=== PATIENT | female | born 1985 | race Caucasian/White ===

== ENCOUNTER 2017-11-25 12:38 | Emergency (ER) | payer OTHER ==
[2017-11-25 14:00] LABS: ADD MAN DIFF? NO
[2017-11-25] MEDS: SOD CHLORIDE 0.9% 1,000 ML IV (14:00)
[2017-11-25] MEDS: DIPHENHYDRAMINE 50 MG INJ IV (14:01)
[2017-11-25] MEDS: KETOROLAC 30 MG INJ IV (14:01)
[2017-11-25] MEDS: METOCLOPRAMIDE 10 MG INJ IV (14:01)
[2017-11-25 14:02] LABS: WHITE BLOOD COUNT 6.5 10^3/ul (4.8-10.8)
[2017-11-25 14:02] LABS: BASOPHILS % 0.5 % (0.0-2.0); EOSINOPHILS # 0.1 10^3/ul (0.0-0.5); EOSINOPHILS % 1.2 % (0.0-7.0); HEMOGLOBIN 13.5 g/dl (12.0-16.0); LYMPHOCYTES # 1.8 10^3/ul (0.8-2.9); LYMPHOCYTES % 27.6 % (15.0-51.0); MEAN CORPUSCULAR HEMOGLOBIN 28.5 pg (29.0-33.0); MEAN CORPUSCULAR HGB CONC 32.9 g/dl (32.0-37.0); MEAN CORPUSCULAR VOLUME 86.7 fl (82.0-101.0); MEAN PLATELET VOLUME 8.7 fl (7.4-10.4); MONOCYTE # 0.4 10^3/ul (0.3-0.9); MONOCYTES % 5.7 % (0.0-11.0); NEUTROPHIL # 4.2 10^3/ul (1.6-7.5); NEUTROPHILS % 64.5 % (39.0-77.0); PLATELET COUNT 286 10^3/UL (140-415); RED BLOOD COUNT 4.73 10^6/ul (4.20-5.40); RED CELL DISTRIBUTION WIDTH 13.5 % (11.5-14.5)
[2017-11-25 14:09] LABS: ADD UMIC YES; UR ASCORBIC ACID NEGATIVE (NEGATIVE); UR BACTERIA FEW /HPF (NONE SEEN); UR BILIRUBIN (Dip) NEGATIVE (NEGATIVE); UR BLOOD (Dip) NEGATIVE (NEGATIVE); UR CLARITY SLIGHTLY CLOUDY (CLEAR); UR COLOR YELLOW (YELLOW); UR GLUCOSE (Dip) NEGATIVE (NEGATIVE); UR KETONES (Dip) NEGATIVE (NEGATIVE); UR LEUKOCYTE ESTERASE (Dip) 2+ Leu/ul (NEGATIVE); UR NITRITE (Dip) NEGATIVE (NEGATIVE); UR RBC 1 /HPF (0-5); UR SPECIFIC GRAVITY (Dip) 1.019 (1.003-1.030); UR SQUAMOUS EPITHELIAL CELL MODERATE /HPF (FEW); UR TOTAL PROTEIN (Dip) NEGATIVE (NEGATIVE); UR UROBILINOGEN (Dip) NEGATIVE (NEGATIVE); UR WBC 2 /HPF (0-5)
[2017-11-25 14:20] LABS: ALANINE AMINOTRANSFERASE 26 IU/L (13-69); ALBUMIN 4.1 g/dl (3.3-4.9); ALBUMIN/GLOBULIN RATIO 1.07; ALKALINE PHOSPHATASE 59 IU/L (42-121); ANION GAP 11 (8-16); ASPARTATE AMINO TRANSFERASE 26 IU/L (15-46); BILIRUBIN,INDIRECT 0.1 mg/dl (0-1.1); BILIRUBIN,TOTAL 0.1 mg/dl (0.2-1.3); BLOOD UREA NITROGEN 8 mg/dl (7-20); CALCIUM 8.2 mg/dl (8.4-10.2); CARBON DIOXIDE 24 mmol/L (21-31); CHLORIDE 109 mmol/L (97-110); CREATININE 0.54 mg/dl (0.44-1.00); GLUCOSE 92 mg/dl (70-220); POTASSIUM 4.2 mmol/L (3.5-5.1); SODIUM 140 mmol/L (135-144); TOTAL PROTEIN 7.9 g/dl (6.1-8.1)
[2017-11-25 14:38] LABS: AMPHETAMINE/METHAMPHETAMINE NEGATIVE (NEGATIVE); BARBITURATES NEGATIVE (NEGATIVE); BENZODIAZEPINES NEGATIVE (NEGATIVE); COCAINE NEGATIVE (NEGATIVE); OPIATES NEGATIVE (NEGATIVE)
[2017-11-25 14:53] LABS: CANNABINOIDS NEGATIVE (NEGATIVE)
== END 2017-11-25 15:55 | disposition home or self-care (01) ==
LOC: FTE 12:38
DX: R51 Headache (principal); R11.10 Vomiting, unspecified
CPT/HCPCS: 70450; 80053; 80307; 81001; 81025; 85025; 87086; 96374; 96375; 99285-25

== ENCOUNTER 2018-07-20 10:03 | Day surgery (SDC) | payer OTHER ==
[2018-07-20 11:11] LABS: ADD MAN DIFF? NO
[2018-07-20 11:22] LABS: WHITE BLOOD COUNT 3.6 10^3/ul (4.8-10.8)
[2018-07-20 11:22] LABS: BASOPHILS % 0.6 % (0.0-2.0); EOSINOPHILS % 1.1 % (0.0-7.0); HEMATOCRIT 38.5 % (37.0-47.0); HEMOGLOBIN 12.5 g/dl (12.0-16.0); LYMPHOCYTES # 1.7 10^3/ul (0.8-2.9); LYMPHOCYTES % 46.3 % (15.0-51.0); MEAN CORPUSCULAR HEMOGLOBIN 27.7 pg (29.0-33.0); MEAN CORPUSCULAR HGB CONC 32.5 g/dl (32.0-37.0); MEAN CORPUSCULAR VOLUME 85.4 fl (82.0-101.0); MEAN PLATELET VOLUME 9.2 fl (7.4-10.4); MONOCYTE # 0.4 10^3/ul (0.3-0.9); MONOCYTES % 10.7 % (0.0-11.0); NEUTROPHIL # 1.5 10^3/ul (1.6-7.5); PLATELET COUNT 243 10^3/UL (140-415); RED BLOOD COUNT 4.51 10^6/ul (4.20-5.40); RED CELL DISTRIBUTION WIDTH 13.7 % (11.5-14.5)
[2018-07-20 11:27] LABS: HOLD TRANSMISSIONS 1
[2018-07-20] MEDS ORDERED: ROCURONIUM 50 MG INJ (12:52)
[2018-07-20] MEDS ORDERED: CEFAZOLIN 1 GM INJ (12:52)
[2018-07-20] MEDS ORDERED: GLYCOPYRROLATE 0.4 MG INJ (12:52)
[2018-07-20] MEDS ORDERED: PROPOFOL 20 ML (12:52)
[2018-07-20] MEDS ORDERED: ONDANSETRON 4 MG INJ (12:54)
[2018-07-20] MEDS ORDERED: DEXAMETHASONE 4 MG/ML 5 ML INJ (12:54)
[2018-07-20] MEDS ORDERED: MIDAZOLAM 1 MG/ML 2 ML INJ (12:54)
[2018-07-20] MEDS ORDERED: FENTAnyl 50 MCG/ML VIAL (12:54)
[2018-07-20] MEDS ORDERED: EPHEDrine SULFATE 50 MG/5 ML SYG IV (13:00)
[2018-07-20] MEDS ORDERED: DIPHENHYDRAMINE 50 MG INJ IV (13:00)
[2018-07-20] MEDS ORDERED: TRIMETHOBENZAMIDE 100 MG/ML VIAL IM (13:00)
[2018-07-20] MEDS ORDERED: MIDAZOLAM 1 MG/ML 2 ML INJ IV (13:00)
[2018-07-20] MEDS ORDERED: hydrALAzine 20 MG INJ IV (13:00)
[2018-07-20] MEDS ORDERED: MEPERIDINE 25 MG INJ IV (13:00)
[2018-07-20] MEDS ORDERED: LABETALOL HCL 20MG INJ IV (13:00)
[2018-07-20] MEDS ORDERED: HYDROmorphONE 1 MG/5 ML IV SYRINGE IV ×2 (13:00)
[2018-07-20] MEDS ORDERED: IPRATROPIUM (NEB) 0.5 MG/2.5 ML AMP HHN (13:00)
[2018-07-20] MEDS ORDERED: FENTAnyl 50 MCG/ML VIAL IV ×3 (13:00)
[2018-07-20] MEDS ORDERED: ALBUTEROL 0.083% (NEB) 2.5 MG/3 ML AMP HHN (13:00)
[2018-07-20] MEDS: STRONG IODINE 14 ML SOLUTION TOP (13:15)
[2018-07-20] MEDS ORDERED: METOCLOPRAMIDE 10 MG INJ (13:20)
[2018-07-20] MEDS: ONDANSETRON 4 MG INJ IV ×2 (14:36→16:25)
[2018-07-20] MEDS: HYDROmorphONE 1 MG/5 ML IV SYRINGE IV (15:43)
== END 2018-07-20 16:20 | disposition home or self-care (01) ==
LOC: SDS 10:03
DX: N87.1 Moderate cervical dysplasia (principal)
CPT/HCPCS: 57522; 84702; 84703; 85025; 86900; 86901; 88305